=== PATIENT | male | born 1955 | race African-American/Black ===

== ENCOUNTER 2017-04-02 13:41 | Emergency (ER) | payer OTHER ==
[~2017-04-02] VITALS: Ht 177.8 cm; Wt 86.2 kg
[~2017-04-02 13:41] MED LIST: BACTROBAN 2% OI15 GM TOPIC; OFLOXACIN10 ML LEFT EAR
[2017-04-02 13:55] VITALS: BP 150/98
[2017-04-02] MEDS ORDERED: ZITHROMAX250 MG ORAL (14:17)
[2017-04-02] MEDS ORDERED: PROMETHAZI6.25 MG/1 ORAL (14:17)
[2017-04-02] MEDS ORDERED: PREDNISONE20 MG ORAL (14:17)
[2017-04-02 14:22] VITALS: BP 150/98
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
--- NOTE | 2017-04-03 09:29 | Diagnostic Imaging Report ---
Indication: COUGH Technique: XRAY CHEST 1 V Comparison: None. Findings: The heart is normal in size. Aorta is elongated. There is a density in the right base measuring 3 cm. The remainder the lungs are clear. No pleural fluid. The bones are unremarkable. Impression: 3 cm density over the right lung base and diaphragm. The possibility of a mass should be considered. Other possibilities include eventration of the diaphragm or foramen of Bochdalek hernia. Further evaluation with CT suggested. Dr. Emerson in the emergency are in was notified of these findings by phone at 9:23 AM 04/03/2017
== END 2017-04-02 14:22 | disposition home or self-care (01) ==
LOC: EMR 14:05
DX: J02.9 Acute pharyngitis, unspecified (principal)
CPT/HCPCS: 71010; 99284

== ENCOUNTER 2017-11-10 19:43 | Emergency (ER) | payer OTHER ==
[~2017-11-10 19:43] MED LIST changes: +PREDNISONE20 MG ORAL; +PROMETHAZI6.25 MG/1 ORAL; +ZITHROMAX250 MG ORAL
== END 2017-11-10 20:04 | disposition left against medical advice (07) ==
LOC: EMR 20:00
DX: Z53.21 Procedure and treatment not carried out due to patient leaving prior to being seen by health care provider (principal)

== ENCOUNTER 2018-10-23 13:27 | Emergency (ER) | payer OTHER ==
[~2018-10-23] VITALS: Ht 175.3 cm; Wt 86.2 kg
[2018-10-23 13:29] VITALS: BP 224/123
[2018-10-23] MEDS ORDERED: NKM (13:31)
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
[2018-10-23] MEDS ORDERED: Isovue-300 100ml vial INJ PRN (13:45)
--- NOTE | 2018-10-23 13:45 | NUR ---
ED Nurse Note: Patient nowhere to be found in the hospital facility. ER MD and charge nurse aware. NO IV access/ID band. Patient is AAO x4 and ambulatory.
--- NOTE | 2018-10-23 14:00 | Emergency Room Report ---
History of Present Illness General Chief Complaint: General Complaint Source: Medical Record Present Illness Allergies: Coded Allergies: No Known Allergies (Unverified , 07/26/15) Nursing Documentation-[facility] Past Medical History: No History, Except For Hx Neurological Problems: Yes - surgery on back 2012 Physical Exam Vital Signs Date Time Temp Pulse Resp B/P (MAP) Pulse Ox O2 Delivery O2 Flow Rate FiO2 10/23/18 13:29 100.0 130 18 224/123 100 Room Air Medical Decision Making ER Course Patient was seen on the [facility] Vital signs are abnormal with hypertensive and tachycardic findings Initial workup was initiated emergently going to discuss with the patient further I was told that the patient left prior to being seen and examined Patient was awake alert and had full decision-making capacity Last Vital Signs Date Time Temp Pulse Resp B/P (MAP) Pulse Ox O2 Delivery O2 Flow Rate FiO2 10/23/18 13:29 100.0 130 18 224/123 100 Room Air Disposition: LEFT W/OUT BEING SEEN Condition: Unknown Elysia Teixeira DO Oct 23, 2018 14:00
== END 2018-10-23 16:00 | disposition left against medical advice (07) ==
LOC: EDBD 13:27 → EMR 13:40 → CANBEDREQ 14:19 → EMR 16:00
DX: Z53.21 Procedure and treatment not carried out due to patient leaving prior to being seen by health care provider (principal)